=== PATIENT | female | born 1980 ===

== ENCOUNTER 2020-01-09 10:58 | Outpatient (CLI) | payer BC ==
--- NOTE | 2020-01-09 12:17 | Mammography Report ---
BILATERAL DIGITAL DIAGNOSTIC MAMMOGRAM WITH CAD 01/09/2020 RIGHT COMPLETE BREAST ULTRASOUND INDICATION: A 39-year-old with right breast pain TECHNIQUE: Digital bilateral mammographic imaging was performed. Complete ultrasound of all four (4) quadrants was performed. This examination was interpreted with the benefit of Computer-Aided Detecti on (CAD) analysis. COMPARISON: None available. FINDINGS: Breast Density: The breasts are heterogeneously dense, which may obscure small masses. MAMMOGRAPHIC FINDINGS: There is no evidence of dominant mass, suspicious calcifications or architectu ral distortion in either breast. ULTRASOUND FINDINGS: Complete sonographic evaluation of all 4 quadrants and retroareolar region was p erformed. Ultrasound of the right breast demonstrated a benign cluster of cysts at 10:00 9 cm from the nipple measuring 9 x 8 x 3 mm. No solid mass or suspicious shadowing. Moderate retroareolar benig n duct ectasia. Ultrasound of the right axilla demonstrated no suspicious lymph nodes. IMPRESSION: Negative bilateral mammogram. A benign cluster of cysts in the right breast at 10:00 9 cm from the nipple and benign right duct ectasia. Follow up recommendation: Unless otherwise clinically indicated, recommend patient return to routine screening mammography at age 42. BI-RADS Category 2: Benign. A "normal" or negative report should not discourage follow up or biopsy of a clinically significant f inding. A written summary of these findings will be mailed to the patient. The patient will be entered into a mammography reporting system which will generate a reminder letter for the patient's next appointmen t at the appropriate interval. According to the [employer], yearly mammograms are recommended starting at age 40 and continuing as long as a woman is in good health. Breast MRI is recommended for women with an yue roximately 20-25% or greater lifetime risk of breast cancer, including women with a strong family his tory of breast or ovarian cancer and women who have been treated for Hodgkin's disease. Signer Name: Jovanni Monterroso MD Signed: 01/09/2020 12:12 PM Workstation Name: [id number]
== END 2020-01-09 10:59 | disposition home or self-care (01) ==
LOC: SPVWC 10:58
PROVIDERS: ATTEND Obstetrics & Gynecology
DX: N60.01 Solitary cyst of right breast (principal); N60.41 Mammary duct ectasia of right breast; N64.4 Mastodynia
CPT/HCPCS: 77066